=== PATIENT | female | born 1945 | race African-American/Black ===

== ENCOUNTER 2016-08-05 11:17 | Emergency (ER) | payer OTHER ==
[~2016-08-05 11:17] MED LIST: 1-ME1LIQ PO; ALLO100T PO; ASPI81TA82 PO; ATOR20TA PO; COUM2.5T PO; COUM5TAB PO; METO50TA PO; OMEP20TA39 PO
[2016-08-05 11:19] VITALS: BP 154/71; PULSE 88; RESP 17; TEMP 98.2; O2SAT 98
--- NOTE | 2016-08-05 11:29 | PD ---
Physical Exam Date Seen by Provider: Aug 05, 2016 Time Seen by Provider: 11:26 Narrative Pt presents c/o right knee pain. She states she heard it make a crunching noise this morning and since that time has been unable to bear weight. Pt reports previous bilateral knee replacements. Pt reports her pain as an 8/10 and described it as throbbing. Pt denies any injury or trauma recently. Data Data Last Documented VS Vital Signs Date Time Temp Pulse Resp B/P Pulse Ox O2 Delivery O2 Flow Rate FiO2 08/05/16 11:19 98.2 88 17 154/71 98 MDM Supervised Visit with TOBY: Simin Panda Aug 05, 2016 11:29
--- NOTE | 2016-08-05 11:33 | PD ---
HPI Chief Complaint: Injury Time Seen by Provider: 11:33 Travel History International Travel<30 days: No Contact w/Intl Traveler<30days: No Traveled to known affect area: No History of Present Illness HPI 71-year-old female with history of hypertension, borderline diabetes, and bilateral knee replacements, one in 1999, and one in 1996 however the patient is uncertain which one, presents to the emergency department for evaluation of right knee pain for the last 3 days. Patient denies any injury but states on Thursday she woke up and she had "crunching" in her right knee. It has been painful to bear weight on since then. Pain is an 8 out of 10 with ambulation. At rest a 4 out of 10. Her orthopedic surgeon is not local. She is not sure what else to do. She is concerned that something may be wrong with instrumentation. She has no other symptoms to report. PFSH Past Medical History Hx Anticoagulant Therapy: Yes (COUMADIN FOR CLOTS IN 1995, 1999, 2002) Arthritis: Yes Blood Disorders: No Heart Rhythm Problems: No Cancer: No Cardiac Catheterization: Yes Cardiovascular Problems: Yes (HTN, 2 X CO) High Cholesterol: Yes Chemotherapy: No Chest Pain: Yes Congestive Heart Failure: Yes Cerebrovascular Accident: No Diabetes: Yes (BORDERLINE) Diminished Hearing: No Deep Vein Thrombosis: Yes Endocrine: No Gastrointestinal Disorders: Yes GERD: Yes Genitourinary: No Hiatal Hernia: Yes Hypertension: Yes Immune Disorder: No Implanted Vascular Access Dvce: Yes Musculoskeletal: Yes (ARTHRITIS) Neurologic: No Psychiatric: No Reproductive: No Respiratory: No Immunizations Current: Yes Myocardial Infarction: Yes (11/2013) Thyroid Disease: No ?: Not Menopausal: Yes Past Surgical History Abdominal Surgery: Yes (GASTRIC BYPASS 1995) Appendectomy: Yes Body Medical Devices: ZACKARY KNEE REPLACEMENT Cholecystectomy: Yes Coronary Artery Bypass Graft: No Gynecologic Surgery: Yes (HYSTERECTOMY) Hysterectomy: No Joint Replacement: Yes (BILAT KNEE REPLACEMENT) Other Surgery: Yes (GASTRIC BYPASS, CATARACTS) Social History Alcohol Use: No Tobacco Use: No Substance Use: No Allergies-Medications (Allergen,Severity, Reaction): Coded Allergies: Lisinopril (Verified Allergy, Severe, angioedema, 01/29/16) Heparin (Verified Adverse Reaction, Severe, PLATELET PROBLEMS, 01/29/16) Reported Meds & Prescriptions Reported Meds & Active Scripts Active Wheelchair (Device) 1 Mis Mis 1 Ea .ROUTE DIRECTED Lortab (Hydrocodone-Acetaminophen) 5-325 Mg Tab 1 Tab PO Q6H PRN Walker/Adult/Folding (Device) 1 Mis Mis 1 Ea .ROUTE DIRECTED Medrol Dosepak (Methylprednisolone) 4 Mg Dspk 4 Mg PO DIRECTED Per Pharmacist direction 1-Methyl 2-Pyrrolidinone (1-Methyl 2-Pyrrolidone (Bulk)) 10 Mg Tab 1 Tab PO DAILY Reported Aspir-81 (Aspirin) 81 Mg Tab 81 Mg PO DIRECTED Coumadin 5 mg (Warfarin Sodium) Warfarin Sodium 5 mg Tab 5 Mg PO SUMOTUWETHSA TAKE 1 TABLET (5MG) ON THURSDAY,THURSDAY,THURSDAY,THURSDAY,THURSDAY AND THURSDAY Coumadin 2.5 mg (Warfarin Sodium) Warfarin Sodium 2.5 mg Tab 2.5 Mg PO WEEKLY TAKE 1 TABLET (2.5MG) WEEKLY ON FRIDAYS Allopurinol 100 Mg Tab 100 Mg PO DAILY Hm Omeprazole (Omeprazole) 20 Mg Tab 20 Mg PO DAILY Atorvastatin 20 mg tab (Atorvastatin Calcium) 20 Mg Tab 20 Mg PO DAILY 30 Days Metoprolol Tartrate 50 mg (Metoprolol Tartrate) 50 Mg Tab 50 Mg PO DAILY Review of Systems Except as stated in HPI: all other systems reviewed are Neg Physical Exam Narrative GENERAL: Well-nourished female patient, in no acute distress SKIN: Focused skin assessment warm/dry. HEAD: Atraumatic. Normocephalic. EYES: Pupils equal and round. No scleral icterus. No injection or drainage. ENT: No nasal bleeding or discharge. Mucous membranes pink and moist. NECK: Trachea midline. No JVD. CARDIOVASCULAR: Regular rate and rhythm. No murmur appreciated. RESPIRATORY: No accessory muscle use. Clear to auscultation. Breath sounds equal bilaterally. GASTROINTESTINAL: Abdomen soft, non-tender, nondistended. Hepatic and splenic margins not palpable. MUSCULOSKELETAL: No obvious deformities. No clubbing. No cyanosis. Large lower extremities. Tenderness elicited to palpation over the right anterior knee isolated to the patella. There is no crepitus. There is no erythema. Edema is difficult to assess due to leg girth. However lower extremities appear equal in size. The pulses are palpable. Cap refills within normal limits. NEUROLOGICAL: Awake and alert. No obvious cranial nerve deficits. Motor grossly within normal limits. Normal speech. PSYCHIATRIC: Appropriate mood and affect; insight and judgment normal. Data Data Last Documented VS Vital Signs Date Time Temp Pulse Resp B/P Pulse Ox O2 Delivery O2 Flow Rate FiO2 08/05/16 12:56 85 18 148/70 98 08/05/16 12:12 Room Air 08/05/16 11:19 98.2 Orders Knee, Complete (4vws) (08/05/16 ) Ketorolac Inj (Toradol Inj) (08/05/16 11:45) ^ David Bandage (08/05/16 12:29) MDM Medical Decision Making Medical Screen Exam Complete: Yes Emergency Medical Condition: Yes Medical Record Reviewed: Yes Differential Diagnosis Osteoarthritis versus bursitis versus instrumentation failure versus fracture versus sprain Narrative Course 71 year-old female presents to emergency department for evaluation of right knee pain, isolated to the anterior aspect of the right knee. Patient does have history DVT however assessment at this time does not support this possible diagnosis. Patient is reporting a crunching in her knee with anterior knee tenderness with palpation. X-ray imaging is negative trauma imaging. She is out as post arthroplasty. I have encouraged the patient to follow-up with an continuous improvement specialist. Further imaging outpatient may be warranted. David wrap is applied. Patient is requesting a prescription for wheelchair. I have advised for follow-up with her primary care provider and also advised that she not stay seated at all times as a full week in her muscles. She verbalizes understanding. She agrees to return immediately with any acute worsening of symptoms. Diagnosis Primary Impression: Right knee pain Qualified Code: M25.561 - Right knee pain, unspecified chronicity Referrals: Orthopaedic Surgeon Primary Care Physician Patient Instructions: General Instructions, Knee Pain (ED) Additional Instructions: Ice and/or warm moist heat may help to alleviate symptoms Follow-up the primary care provider Seek orthopedic evaluation if symptoms persist. Outpatient MRI may be warranted Return immediately with any acute worsening of symptoms Med/Other Pt SpecificInfo: Prescription(s) given Scripts Wheelchair 1 Mis Mis #1 EA .ROUTE DIRECTED Ref 0 Prov:Shilpa Delaney 08/05/16 Hydrocodone-Acetaminophen (Lortab)5-325 Mg Tab1 Tab PO Q6H PRN (PAIN GREATER THAN 5) #15 TAB Ref 0 Prov:Vaishali Canchola MD 08/05/16 Walker/Adult/Folding 1 Mis Mis #1 EA .ROUTE DIRECTED Ref 0 Prov:Shilpa Delaney 08/05/16 Methylprednisolone Dosepak (Medrol Dosepak)4 Mg Dspk4 Mg PO DIRECTED #1 DSPK Ref 0 Per Pharmacist direction Prov:Shilpa Delaney 08/05/16 Disposition: 01 DISCHARGE HOME Condition: Stable Shilpa Delaney Aug 05, 2016 11:33
[2016-08-05] MEDS ORDERED: KETOROLAC TROMETHAMINE 60 MG/2 ML (IM) VIAL IM ONE (11:45)
--- NOTE | 2016-08-05 12:21 | RADRPT ---
EXAM DATE/TIME: 08/05/2016 12:02 [facility] COMPARISON: No previous studies available for comparison. INDICATIONS : Right knee pain, fall. MEDICAL HISTORY : SURGICAL HISTORY : Total knee replacement, right. ENCOUNTER: Initial ACUITY: 2 weeks PAIN SCORE: 6/10 LOCATION: Right anterior knee FINDINGS: A standard 4 view examination of the knee was performed and demonstrates the patient is status post t otal knee arthroplasty. The femoral and tibial components are intact and in normal alignment. There i s no acute fracture or loosening. The soft tissues are unremarkable. CONCLUSION: Negative trauma study status post arthroplasty. Juan A Hernandez MD on August 05, 2016 at 12:18 Board Certified Radiologist. This report was verified electronically.
[2016-08-05] MEDS ORDERED: MEDR4PAK PO (12:31)
[2016-08-05] MEDS ORDERED: WALKER/ADULT/FO1 MIS (12:32)
[2016-08-05] MEDS ORDERED: HYDR-3533 PO (12:33)
[2016-08-05] MEDS ORDERED: WHEEMIS3 (12:36)
[2016-08-05 12:56] VITALS: BP 148/70
== END 2016-08-05 13:25 | disposition home or self-care (01) ==
LOC: NEPD 11:17
DX: M25.561 Pain in right knee (principal)
CPT/HCPCS: 73564; 96372; 99283; J1885

== ENCOUNTER 2016-10-05 00:26 | Emergency (ER) | payer OTHER ==
[~2016-10-05] VITALS: Ht 160 cm; Wt 120.0 kg
[~2016-10-05 00:26] MED LIST changes: +HYDR-3533 PO; +MEDR4PAK PO; +WALKER/ADULT/FO1 MIS; +WHEEMIS3
[2016-10-05 00:28] VITALS: BP 151/72; PULSE 70; RESP 16; TEMP 98.4; O2SAT 100
[2016-10-05 00:40] VITALS: BP 165/70; PULSE 67; RESP 16; O2SAT 100
[2016-10-05] MEDS ORDERED: AMLO10TA2 PO (00:45)
[2016-10-05] MEDS ORDERED: AMLO5TAB2 PO (00:45)
[2016-10-05] MEDS ORDERED: WARF-18 PO (00:45)
[2016-10-05] MEDS ORDERED: COUM5TAB PO (00:45)
[2016-10-05] MEDS ORDERED: LIPI20TA PO (00:45)
--- NOTE | 2016-10-05 00:55 | PD ---
HPI Chief Complaint: Chest Pain Time Seen by Provider: 00:42 Travel History International Travel<30 days: No Contact w/Intl Traveler<30days: No Traveled to known affect area: No History of Present Illness HPI The patient is a 71-year-old [place] female who presents emergency department for chest pain. The patient states she developed chest pain approximately 2 hours prior to arrival while she was driving her 18-year-old granddaughter to the emergency department. The chest pain is substernal, radiates left aspect the chest, described as pressure, mild shortness of breath and nausea without any vomiting. She has been sweating throughout the day. The patient does note a history of CAD, however, denies previous stent placement. She also has a history of hypertension, hyperlipidemia, borderline diabetes, but denies any tobacco use. The patient is followed by her primary physician, Dr. Pizano and her learning officer, Dr. Alfaro. The patient had a stress test in 2014 which was abnormal, states she may have undergone cardiac catheterization at [facility] in either April or June of this year, but cannot recall the exact date. Symptoms are moderate, there are no current alleviating or exacerbating factors. The patient does have a history of DVT and has been on Coumadin since 1995. She denies any history of pulmonary embolism. PFSH Past Medical History Hx Anticoagulant Therapy: Yes (COUMADIN FOR CLOTS IN 1995, 1999, 2002) Arthritis: Yes Blood Disorders: No Heart Rhythm Problems: No Cancer: No Cardiac Catheterization: Yes Cardiovascular Problems: Yes (HTN, 2 X MS) High Cholesterol: Yes Chemotherapy: No Chest Pain: Yes Congestive Heart Failure: Yes Cerebrovascular Accident: No Diabetes: Yes (BORDERLINE) Diminished Hearing: No Deep Vein Thrombosis: Yes Endocrine: No Gastrointestinal Disorders: Yes GERD: Yes Genitourinary: No Hiatal Hernia: Yes Hypertension: Yes Immune Disorder: No Implanted Vascular Access Dvce: Yes Musculoskeletal: Yes (ARTHRITIS) Neurologic: No Psychiatric: No Reproductive: No Respiratory: No Immunizations Current: Yes Myocardial Infarction: Yes (11/2013) Thyroid Disease: No Menopausal: Yes Past Surgical History Abdominal Surgery: Yes (GASTRIC BYPASS 1995) Appendectomy: Yes Body Medical Devices: ZACKARY KNEE REPLACEMENT Cholecystectomy: Yes Coronary Artery Bypass Graft: No Gynecologic Surgery: Yes (HYSTERECTOMY) Hysterectomy: No Joint Replacement: Yes (BILAT KNEE REPLACEMENT) Other Surgery: Yes (GASTRIC BYPASS, CATARACTS) Social History Alcohol Use: No Tobacco Use: No Substance Use: No Allergies-Medications (Allergen,Severity, Reaction): Coded Allergies: Lisinopril (Verified Allergy, Severe, angioedema, 10/05/16) Heparin (Verified Adverse Reaction, Severe, PLATELET PROBLEMS, 10/05/16) Reported Meds & Prescriptions Reported Meds & Active Scripts Active Wheelchair (Device) 1 Mis Mis 1 Ea .ROUTE DIRECTED Walker/Adult/Folding (Device) 1 Mis Mis 1 Ea .ROUTE DIRECTED Reported Amlodipine (Amlodipine Besylate) 10 Mg Tab 10 Mg PO DAILY Lipitor (Atorvastatin Calcium) 20 Mg Tab 20 Mg PO HS Warfarin 2.5 Mg Tab 2.5 Mg PO FRIMO Coumadin (Warfarin) 5 Mg Tab 5 Mg PO WETHSASU Review of Systems Except as stated in HPI: all other systems reviewed are Neg General / Constitutional: No: Fever HENT: No: Lightheadedness Cardiovascular: Positive: Chest Pain or Discomfort, Diaphoresis, No: Dyspnea on exertion Respiratory: Positive: Shortness of Breath Gastrointestinal: Positive: Nausea, No: Vomiting Neurologic: No: Dizziness Physical Exam Narrative GENERAL: Awake, alert, nontoxic-appearing 71-year-old female who appears her stated age is in no acute respiratory distress. SKIN: Focused skin assessment warm/dry. HEAD: Atraumatic. Normocephalic. EYES: Pupils equal and round. No injection or drainage. ENT: No nasal bleeding or discharge. Mucous membranes pink and moist. NECK: Trachea midline. No JVD. CARDIOVASCULAR: Regular rate and rhythm. No murmur appreciated. RESPIRATORY: No accessory muscle use. Clear to auscultation. Breath sounds equal bilaterally. GASTROINTESTINAL: Abdomen soft, non-tender, nondistended. No rebound tenderness. MUSCULOSKELETAL: No obvious deformities. No clubbing. No cyanosis. Well- healed scars of the lower and strength is bilaterally. NEUROLOGICAL: Awake and alert. No obvious cranial nerve deficits. Motor grossly within normal limits. Normal speech. PSYCHIATRIC: Appropriate mood and affect; insight and judgment normal. Data Data Last Documented VS Vital Signs Date Time Temp Pulse Resp B/P Pulse Ox O2 Delivery O2 Flow Rate FiO2 10/05/16 01:48 77 18 153/69 98 Room Air 10/05/16 00:28 98.4 Orders Electrocardiogram (10/05/16 00:51) Ckmb (Isoenzyme) Profile (10/05/16 00:51) Complete Blood Count With Diff (10/05/16 00:51) Comprehensive Metabolic Panel (10/05/16 00:51) Magnesium (Mg) (10/05/16 00:51) Prothrombin Time / Inr (Pt) (10/05/16 00:51) Act Partial Throm Time (Ptt) (10/05/16 00:51) Troponin I (10/05/16 00:51) Lipase (10/05/16 00:51) Chest, Single Ap (10/05/16 00:51) Ecg Monitoring (10/05/16 00:51) Bilateral Bp Monitoring (10/05/16 00:51) Iv Access Insert/Monitor (10/05/16 00:51) Oximetry (10/05/16 00:51) Oxygen Administration (10/05/16 00:51) Aspirin Chew (Aspirin Chew) (10/05/16 01:00) Sodium Chloride 0.9% Flush (Ns Flush) (10/05/16 01:00) Nitroglycerin Sl (Nitrostat Sl) (10/05/16 01:00) Sodium Chlorid 0.9% 500 Ml Inj (Ns 500 M (10/05/16 01:00) Troponin I (10/05/16 05:00) Labs Laboratory Tests Test 10/05/16 10/05/16 10/05/16 01:20 02:14 05:27 White Blood Count 10.1 TH/MM3 Red Blood Count 5.09 MIL/MM3 Hemoglobin 13.3 GM/DL Hematocrit 40.6 % Mean Corpuscular Volume 79.7 FL Mean Corpuscular Hemoglobin 26.1 PG Mean Corpuscular Hemoglobin 32.7 % Concent Red Cell Distribution Width 16.4 % Platelet Count 259 TH/MM3 Mean Platelet Volume 9.2 FL Neutrophils (%) (Auto) 54.8 % Lymphocytes (%) (Auto) 30.9 % Monocytes (%) (Auto) 8.5 % Eosinophils (%) (Auto) 4.8 % Basophils (%) (Auto) 1.0 % Neutrophils # (Auto) 5.5 TH/MM3 Lymphocytes # (Auto) 3.1 TH/MM3 Monocytes # (Auto) 0.9 TH/MM3 Eosinophils # (Auto) 0.5 TH/MM3 Basophils # (Auto) 0.1 TH/MM3 CBC Comment DIFF FINAL Differential Comment Prothrombin Time 21.6 SEC Prothromb Time International 1.9 RATIO Ratio Activated Partial 34.5 SEC Thromboplast Time Sodium Level 141 MEQ/L Potassium Level 3.7 MEQ/L Chloride Level 108 MEQ/L Carbon Dioxide Level 23.7 MEQ/L Anion Gap 9 MEQ/L Blood Urea Nitrogen 13 MG/DL Creatinine 0.80 MG/DL Estimat Glomerular Filtration 86 ML/MIN Rate Random Glucose 103 MG/DL Calcium Level 8.6 MG/DL Magnesium Level 1.9 MG/DL Total Bilirubin 0.2 MG/DL Aspartate Amino Transf 14 U/L (AST/SGOT) Alanine Aminotransferase 13 U/L (ALT/SGPT) Alkaline Phosphatase 96 U/L Total Creatine Kinase 65 U/L Troponin I LESS THAN 0.02 LESS THAN 0.02 NG/ML NG/ML Total Protein 7.3 GM/DL Albumin 3.0 GM/DL Lipase 63 U/L MDM Medical Decision Making Medical Screen Exam Complete: Yes Emergency Medical Condition: Yes Medical Record Reviewed: Yes Interpretation(s) EKG reveals normal sinus rhythm with a rate of 66. Minimal voltage criteria for LVH. Last Impressions Chest X-Ray 10/05/16 0051 Signed Impressions: Service Date/Time: Wednesday, October 05, 2016 01:03 - CONCLUSION: No acute disease. Jose Vang MD Laboratory Tests Test 10/05/16 10/05/16 10/05/16 01:20 02:14 05:27 White Blood Count 10.1 TH/MM3 Red Blood Count 5.09 MIL/MM3 Hemoglobin 13.3 GM/DL Hematocrit 40.6 % Mean Corpuscular Volume 79.7 FL Mean Corpuscular Hemoglobin 26.1 PG Mean Corpuscular Hemoglobin 32.7 % Concent Red Cell Distribution Width 16.4 % Platelet Count 259 TH/MM3 Mean Platelet Volume 9.2 FL Neutrophils (%) (Auto) 54.8 % Lymphocytes (%) (Auto) 30.9 % Monocytes (%) (Auto) 8.5 % Eosinophils (%) (Auto) 4.8 % Basophils (%) (Auto) 1.0 % Neutrophils # (Auto) 5.5 TH/MM3 Lymphocytes # (Auto) 3.1 TH/MM3 Monocytes # (Auto) 0.9 TH/MM3 Eosinophils # (Auto) 0.5 TH/MM3 Basophils # (Auto) 0.1 TH/MM3 CBC Comment DIFF FINAL Differential Comment Prothrombin Time 21.6 SEC Prothromb Time International 1.9 RATIO Ratio Activated Partial 34.5 SEC Thromboplast Time Sodium Level 141 MEQ/L Potassium Level 3.7 MEQ/L Chloride Level 108 MEQ/L Carbon Dioxide Level 23.7 MEQ/L Anion Gap 9 MEQ/L Blood Urea Nitrogen 13 MG/DL Creatinine 0.80 MG/DL Estimat Glomerular Filtration 86 ML/MIN Rate Random Glucose 103 MG/DL Calcium Level 8.6 MG/DL Magnesium Level 1.9 MG/DL Total Bilirubin 0.2 MG/DL Aspartate Amino Transf 14 U/L (AST/SGOT) Alanine Aminotransferase 13 U/L (ALT/SGPT) Alkaline Phosphatase 96 U/L Total Creatine Kinase 65 U/L Troponin I LESS THAN 0.02 LESS THAN 0.02 NG/ML NG/ML Total Protein 7.3 GM/DL Albumin 3.0 GM/DL Lipase 63 U/L Differential Diagnosis Differential diagnosis includes acute coronary syndrome, pulmonary embolism, GERD, esophageal spasm, pancreatitis, costochondritis, anxiety. Narrative Course IV was established, labs are drawn and sent, and the patient was placed on cardiac telemetry monitoring and continuous pulse oximetry monitoring. EKG was ordered and interpreted. Chest x-rays obtained. PTT/INR were sent to lab. The patient was administered aspirin 162 mg orally and nitroglycerin sublingual times one. I reviewed the patient's EMR, she had an abnormal stress test in 2014, I cannot see a cardiac catheterization performed at that time. We will try to obtain records of her cardiac catheterization was performed at [facility] in [place], [place]. We obtained the patient's cardiac catheterization report from [facility], the catheter was performed May 04, 2015, findings were the left main had no evidence of disease, LAD had no evidence of disease, circumflex had no evidence of disease, RCA had no evidence of disease, cardiac catheterization was unremarkable, normal, no stent needed. Therefore, patient's pain may be of another source, I had a discussion with the patient was agreed we rechecked 2 sets cardiac enzymes and if negative the patient will be discharged home. The patient's second troponin is negative , she is now chest pain-free, she is stable for outpatient follow-up. Diagnosis Primary Impression: Chest pain Qualified Code: R07.9 - Chest pain, unspecified type Patient Instructions: General Instructions Additional Instructions: Continue your home medications as previously directed. Follow-up with her primary physician. Please provide the patient a copy of her x-ray results and lab results at discharge. Return if symptoms worsen or progress. Med/Other Pt SpecificInfo: No Change to Meds Disposition: 01 DISCHARGE HOME Condition: Stable Hill Mccallum MD Oct 05, 2016 00:55
[2016-10-05] MEDS ORDERED: SODIUM CHLORID 0.9% 500 ML INJ 500 ML IV ONE (01:00)
[2016-10-05] MEDS ORDERED: ASPIRIN 81 MG CHEW TAB PO ONE (01:00)
[2016-10-05] MEDS ORDERED: SODIUM CHLORIDE 0.9% FLUSH 10 ML FLUSH IVF PRN (01:00)
[2016-10-05] MEDS ORDERED: NITROGLYCERIN 0.4 MG SL 25 TABS/BTL SL ONE (01:00)
[2016-10-05 01:26] VITALS: RESP 22; O2SAT 100
[2016-10-05 01:32] LABS: AUTOMATED NEUTROPHIL # 5.5 TH/MM3 (1.8-7.7); BASOPHIL # 0.1 TH/MM3 (0-0.2); EOSINOPHIL # 0.5 TH/MM3 (0-0.4); EOSINOPHIL % 4.8 % (0.0-4.0); HEMATOCRIT 40.6 % (35.0-46.0); HEMO FLAGS DIFF FINAL; LYMPH % 30.9 % (9.0-44.0); LYMPHOCYTE # 3.1 TH/MM3 (1.0-4.8); MEAN CELL VOLUME 79.7 FL (80.0-100.0); MEAN CORPUSCULAR HEMOGLOBIN 26.1 PG (27.0-34.0); MEAN CORPUSCULAR HGB CONC 32.7 % (32.0-36.0); MONO % 8.5 % (0.0-8.0); NEUT % 54.8 % (16.0-70.0); PLATELET COUNT 259 TH/MM3 (150-450); RED BLOOD COUNT 5.09 MIL/MM3 (4.00-5.30); RED CELL DISTRIBUTION WIDTH 16.4 % (11.6-17.2); WHITE BLOOD COUNT 10.1 TH/MM3 (4.0-11.0)
[2016-10-05 01:47] LABS: INTERNATIONAL NORMALIZED RATIO 1.9 RATIO; PROTHROMBIN TIME - PATIENT 21.6 SEC (9.8-11.6)
[2016-10-05 01:48] VITALS: BP 153/69; PULSE 77; RESP 18; O2SAT 98
[2016-10-05 01:57] LABS: APTT (PATIENT) 34.5 SEC (24.3-30.1)
--- NOTE | 2016-10-05 02:00 | RADRPT ---
EXAM DATE/TIME: 10/05/2016 01:03 [facility] COMPARISON: CHEST SINGLE AP, January 29, 2016, 18:58. INDICATIONS : Chest pain. MEDICAL HISTORY : Hypertension. Myocardial infarction. Hypercholesterolemia. Diabetes, Hiatal hernia. GERD. Arthrit is, DVT SURGICAL HISTORY : Appendectomy. Cholecystectomy. Hysterectomy. Cardiac catheterization. Gastric bypass. Bilateral knee surgery ENCOUNTER: Initial ACUITY: 1 day PAIN SCORE: 8/10 LOCATION: Bilateral chest FINDINGS: A single view of the chest demonstrates the lungs to be symmetrically aerated without evidence of mas s, infiltrate or effusion. The cardiomediastinal contours are unremarkable. Osseous structures are intact. CONCLUSION: No acute disease. Jose Vang MD on October 05, 2016 at 1:58 Board Certified Radiologist. This report was verified electronically.
[2016-10-05 02:47] LABS: ALT (GPT) 13 U/L (10-53); ANION GAP 9 MEQ/L (5-15); AST (GOT) 14 U/L (15-37); BICARBONATE 23.7 MEQ/L (21.0-32.0); BLOOD UREA NITROGEN 13 MG/DL (7-18); CHLORIDE 108 MEQ/L (98-107); GLOMERULAR FILTRATION RATE 86 ML/MIN (>89); MAGNESIUM 1.9 MG/DL (1.5-2.5); POTASSIUM 3.7 MEQ/L (3.5-5.1); SODIUM (NA) 141 MEQ/L (136-145)
[2016-10-05 02:51] LABS: ALKALINE PHOSPHATASE 96 U/L (45-117); TOTAL BILIRUBIN ADULT 0.2 MG/DL (0.2-1.0)
[2016-10-05 03:02] LABS: CREATINE KINASE 65 U/L (26-192)
[2016-10-05 06:37] VITALS: BP 179/74; PULSE 69; RESP 20; O2SAT 96
--- NOTE | 2016-10-05 12:09 | EKG ---
Date Performed: 10/05/2016 Time Performed: 00:37:20 PTAGE: 71 years EKG: Sinus rhythm MINIMAL VOLTAGE CRITERIA FOR LVH, CONSIDER NORMAL VARIANT Since previous tracing, no significant edilma nge noted BORDERLINE ECG PREVIOUS TRACING : 01/30/2016 01.07 DOCTOR: Johnie Moy Interpretating Date/Time 10/05/2016 12:09:25
== END 2016-10-05 06:50 | disposition home or self-care (01) ==
LOC: NEPC 00:26
DX: R07.9 Chest pain, unspecified (principal); R06.02 Shortness of breath; R11.0 Nausea; R61 Generalized hyperhidrosis; R94.31 Abnormal electrocardiogram [ECG] [EKG]; I10 Essential (primary) hypertension; E78.5 Hyperlipidemia, unspecified; R73.03 Prediabetes; I25.2 Old myocardial infarction; Z79.01 Long term (current) use of anticoagulants; Z86.79 Personal history of other diseases of the circulatory system; Z86.718 Personal history of other venous thrombosis and embolism; Z87.39 Personal history of other diseases of the musculoskeletal system and connective tissue; Z87.19 Personal history of other diseases of the digestive system
CPT/HCPCS: 71010; 80053; 82550; 83690; 83735; 84484; 85025; 85610; 85730; 93005; 96360; 96361; 99285; J7040

== ENCOUNTER 2017-02-24 16:25 | Emergency (ER) | payer OTHER ==
[~2017-02-24 16:25] MED LIST changes: -1-ME1LIQ PO; -ALLO100T PO; +AMLO10TA2 PO; -ASPI81TA82 PO; -ATOR20TA PO; -COUM2.5T PO; -HYDR-3533 PO; +LIPI20TA PO; -MEDR4PAK PO; -METO50TA PO; -OMEP20TA39 PO; +WARF-18 PO
[2017-02-24 16:28] VITALS: BP 139/68; PULSE 65; RESP 16; TEMP 98.4; O2SAT 100
--- NOTE | 2017-02-24 18:21 | RADRPT ---
EXAM DATE/TIME: 02/24/2017 17:42 [facility] COMPARISON: CHEST PA & LAT, January 16, 2015, 13:24. INDICATIONS : Chest pain and short of breath. MEDICAL HISTORY : Hypertension. Myocardial infarction. Hypercholesterolemia. Diabetes. Hiatal hernia. GERD. Arthritis. DVT. SURGICAL HISTORY : Appendectomy. Cholecystectomy. Hysterectomy. Cardiac catheterization. Gastric bypass. Bilateral knee surgery. ENCOUNTER: Initial ACUITY: 2 days PAIN SCORE: 3/10 LOCATION: Bilateral chest FINDINGS: PA and lateral views of the chest demonstrate the lungs to be symmetrically aerated without evidence of mass, infiltrate or effusion. The cardiomediastinal contours are unremarkable. Spurs are seen in the thoracic spine.. CONCLUSION: Normal examination. Abiel Agarwal MD on February 24, 2017 at 18:19 Board Certified Radiologist. This report was verified electronically.
[2017-02-24] MEDS ORDERED: SPIR25TA PO (20:29)
[2017-02-24] MEDS ORDERED: ALLO100T PO (20:29)
[2017-02-24] MEDS ORDERED: OMEP10CA PO (20:29)
[2017-02-24 20:30] VITALS: BP 183/87; PULSE 62; RESP 18; O2SAT 100
[2017-02-24] MEDS ORDERED: SODIUM CHLORIDE 0.9% FLUSH 10 ML FLUSH IVF PRN (21:00)
[2017-02-24 21:11] LABS: ANION GAP 9 MEQ/L (5-15); BLOOD UREA NITROGEN 13 MG/DL (7-18); CHLORIDE 104 MEQ/L (98-107); GLOMERULAR FILTRATION RATE 53 ML/MIN (>89); SODIUM (NA) 136 MEQ/L (136-145)
[2017-02-24 21:14] LABS: CREATINE KINASE 137 U/L (26-192)
[2017-02-24 21:16] LABS: BASOPHIL # 0.1 TH/MM3 (0-0.2); BASOPHIL % 0.7 % (0.0-2.0); EOSINOPHIL # 0.4 TH/MM3 (0-0.4); EOSINOPHIL % 4.6 % (0.0-4.0); HEMATOCRIT 43.1 % (35.0-46.0); HEMO FLAGS DIFF FINAL; LYMPH % 31.6 % (9.0-44.0); LYMPHOCYTE # 2.9 TH/MM3 (1.0-4.8); MEAN CELL VOLUME 81.9 FL (80.0-100.0); MEAN CORPUSCULAR HEMOGLOBIN 26.2 PG (27.0-34.0); NEUT % 55.1 % (16.0-70.0); PLATELET COUNT 236 TH/MM3 (150-450); RED BLOOD COUNT 5.26 MIL/MM3 (4.00-5.30); RED CELL DISTRIBUTION WIDTH 16.2 % (11.6-17.2); WHITE BLOOD COUNT 9.1 TH/MM3 (4.0-11.0)
[2017-02-24 21:21] LABS: POTASSIUM 4.8 MEQ/L (3.5-5.1)
--- NOTE | 2017-02-24 21:21 | PD ---
HPI Chief Complaint: Respiratory Symptoms Time Seen by Provider: 20:55 Travel History International Travel<30 days: No Contact w/Intl Traveler<30days: No Traveled to known affect area: No History of Present Illness HPI Patient is a 72-year-old female presenting to the emergency department for evaluation of painful respirations. Patient states that it hurts to take a deep breath. She states this started on and she went to her primary doctor today who sent her to emergency department for chest x-ray. Patient denies any cough, fever, chills, nausea, vomiting. She states she does not feel short of breath but just that it hurts to take a deep breath. She denies any history of COPD or asthma. She is currently on Coumadin for DVT in her leg. She also reports a history of type 2 diabetes, hypertension, hyperlipidemia. PFSH Past Medical History Hx Anticoagulant Therapy: Yes (COUMADIN) Arthritis: Yes Blood Disorders: No Heart Rhythm Problems: No Cancer: No Cardiac Catheterization: Yes Cardiovascular Problems: Yes (HTN; [place] ) High Cholesterol: Yes Chemotherapy: No Chest Pain: Yes Congestive Heart Failure: Yes Cerebrovascular Accident: No Diabetes: Yes Patient Takes Glucophage: No Diminished Hearing: No Deep Vein Thrombosis: Yes Endocrine: No GERD: Yes Genitourinary: No Hiatal Hernia: Yes Hypertension: Yes Immune Disorder: No Neurologic: No Psychiatric: No Reproductive: No Respiratory: No Immunizations Current: Yes Myocardial Infarction: Yes (11/2013) Thyroid Disease: No Tetanus Vaccination: Unknown Influenza Vaccination: Yes Menopausal: Yes Past Surgical History Abdominal Surgery: Yes (GASTRIC BYPASS 1995) Appendectomy: Yes Body Medical Devices: ZACKARY KNEE REPLACEMENT Cholecystectomy: Yes Coronary Artery Bypass Graft: No Hysterectomy: Yes (TOTAL) Joint Replacement: Yes (BILAT KNEE REPLACEMENT) Other Surgery: Yes (GASTRIC BYPASS, CATARACTS) Family History Family Myocardial Infarction: Yes Social History Alcohol Use: No Tobacco Use: No Substance Use: No Allergies-Medications (Allergen,Severity, Reaction): Coded Allergies: lisinopril (Unverified Allergy, Severe, angioedema, 02/24/17) enoxaparin (Unverified Adverse Reaction, Severe, PLATELET PROBLEMS, ) heparin (porcine) (Unverified Adverse Reaction, Severe, PLATELET PROBLEMS , 02/24/17) Reported Meds & Prescriptions Reported Meds & Active Scripts Active Reported Omeprazole 10 Mg Cap 10 Mg PO DAILY Allopurinol 100 Mg Tab 100 Mg PO DAILY Spironolactone 25 Mg Tab 25 Mg PO BIDPC Amlodipine (Amlodipine Besylate) 10 Mg Tab 10 Mg PO DAILY Lipitor (Atorvastatin Calcium) 20 Mg Tab 20 Mg PO HS Warfarin 2.5 Mg Tab 2.5 Mg PO FRIMO Coumadin (Warfarin) 5 Mg Tab 5 Mg PO TUWETHSASU Review of Systems Except as stated in HPI: all other systems reviewed are Neg HENT: No: Headaches Cardiovascular: No: Chest Pain or Discomfort Respiratory: Positive: Pleuritic Pain, No: Shortness of Breath Gastrointestinal: No: Nausea, Abdominal Pain Musculoskeletal: No: Myalgias Physical Exam Narrative GENERAL: Overweight, well-developed, alert female. Resting comfortably in no acute distress. SKIN: Warm and dry. HEAD: Atraumatic. Normocephalic. EYES: Pupils equal and round. No scleral icterus. No injection or drainage. ENT: No nasal bleeding or discharge. Mucous membranes pink and moist. NECK: Trachea midline. No JVD. CARDIOVASCULAR: Regular rate and rhythm. RESPIRATORY: No accessory muscle use. Clear to auscultation. Breath sounds equal bilaterally. GASTROINTESTINAL: Abdomen soft, non-tender, nondistended. Hepatic and splenic margins not palpable. Positive bowel sounds, no rebound, no guarding MUSCULOSKELETAL: Extremities without clubbing, cyanosis, or edema. No obvious deformities. NEUROLOGICAL: Awake and alert. No obvious cranial nerve deficits. Motor grossly within normal limits. Five out of 5 muscle strength in the arms and legs. Normal speech. PSYCHIATRIC: Appropriate mood and affect; insight and judgment normal. Data Data Last Documented VS Vital Signs Date Time Temp Pulse Resp B/P (MAP) Pulse Ox O2 Delivery O2 Flow Rate FiO2 02/24/17 20:50 97 Nasal Cannula 2.00 02/24/17 20:30 62 18 183/87 (119) 02/24/17 16:28 98.4 Orders Orders Electrocardiogram (02/24/17 16:45) Basic Metabolic Panel (Bmp) (02/24/17 16:45) B-Type Natriuretic Peptide (02/24/17 16:45) Ckmb (Isoenzyme) Profile (02/24/17 16:45) Complete Blood Count With Diff (02/24/17 16:45) Magnesium (Mg) (02/24/17 16:45) Prothrombin Time / Inr (Pt) (02/24/17 16:45) Act Partial Throm Time (Ptt) (02/24/17 16:45) Troponin I (02/24/17 16:45) Chest, Pa & Lat (02/24/17 16:45) Iv Access Insert/Monitor (02/24/17 20:56) Ecg Monitoring (02/24/17 20:56) Oximetry (02/24/17 20:56) Oxygen Administration (02/24/17 20:56) Sodium Chloride 0.9% Flush (Ns Flush) (02/24/17 21:00) CKMB (02/24/17 20:30) CKMB% (02/24/17 20:30) Ketorolac Inj (Toradol Inj) (02/24/17 22:45) Labs Laboratory Tests Test 02/24/17 20:30 02/24/17 21:36 White Blood Count 9.1 TH/MM3 Red Blood Count 5.26 MIL/MM3 Hemoglobin 13.8 GM/DL Hematocrit 43.1 % Mean Corpuscular Volume 81.9 FL Mean Corpuscular Hemoglobin 26.2 PG Mean Corpuscular Hemoglobin Concent 32.0 % Red Cell Distribution Width 16.2 % Platelet Count 236 TH/MM3 Mean Platelet Volume 9.2 FL Neutrophils (%) (Auto) 55.1 % Lymphocytes (%) (Auto) 31.6 % Monocytes (%) (Auto) 8.0 % Eosinophils (%) (Auto) 4.6 % Basophils (%) (Auto) 0.7 % Neutrophils # (Auto) 5.0 TH/MM3 Lymphocytes # (Auto) 2.9 TH/MM3 Monocytes # (Auto) 0.7 TH/MM3 Eosinophils # (Auto) 0.4 TH/MM3 Basophils # (Auto) 0.1 TH/MM3 CBC Comment DIFF FINAL Differential Comment Blood Urea Nitrogen 13 MG/DL Creatinine 1.21 MG/DL Random Glucose 157 MG/DL Calcium Level 8.9 MG/DL Magnesium Level 2.0 MG/DL Sodium Level 136 MEQ/L Potassium Level 4.8 MEQ/L Chloride Level 104 MEQ/L Carbon Dioxide Level 23.0 MEQ/L Anion Gap 9 MEQ/L Estimat Glomerular Filtration Rate 53 ML/MIN Total Creatine Kinase 137 U/L Creatine Kinase MB LESS THAN 0.5 NG/ML Troponin I LESS THAN 0.02 NG/ML B-Type Natriuretic Peptide 23 PG/ML Prothrombin Time 20.1 SEC Prothromb Time International Ratio 1.8 RATIO Activated Partial Thromboplast Time 33.6 SEC MDM Medical Decision Making Medical Screen Exam Complete: Yes Emergency Medical Condition: Yes Interpretation(s) Last Impressions Chest X-Ray 02/24/17 1645 Signed Impressions: Service Date/Time: Friday, February 24, 2017 17:42 - CONCLUSION: Normal examination. Abiel Agarwal MD Vital Signs Date Time Temp Pulse Resp B/P (MAP) Pulse Ox O2 Delivery O2 Flow Rate FiO2 02/24/17 20:50 97 Nasal Cannula 2.00 02/24/17 20:30 62 18 183/87 (119) 100 Nasal Cannula 2.00 02/24/17 20:22 60 16 100 Nasal Cannula 2.00 02/24/17 16:28 98.4 65 16 139/68 (91) 100 Differential Diagnosis ACS versus pneumonia versus bronchitis versus pleuritic pain versus other Narrative Course Patient is a 72-year-old female that presented to the emergency for evaluation of pleuritic chest pain. Symptoms started on , she saw her primary today who sent her to emergency department for evaluation. Vital signs are stable, on arrival her pulse ox was 97% on room air. Patient's workup was initiated in triage. Patient is on Coumadin for previous DVT. CBC with no acute abnormalities Cardiac enzymes are negative 1 set BNP is 23 Chest x-ray which was read by the radiologist shows no acute disease. Coags are pending. INR is within therapeutic range. Patient will be discharged home as the likelihood of a pulmonary embolism would be significantly decreased. Patient does report compliance with medication administration. Patient will be administered a dose of Toradol now for pain. Patient reported that her INR was 1.2 on Thursday. INR today is 1.8. CT pulmonary angiogram has been ordered to rule out pulmonary embolism due to subtherapeutic INR. Care of patient transferred to Dr. Boone who will determine patients disposition. Simin Hsieh Feb 24, 2017 21:21
--- NOTE | 2017-02-24 21:28 | EKG ---
Date Performed: 02/24/2017 Time Performed: 18:07:11 PTAGE: 72 years EKG: SINUS BRADYCARDIA BORDERLINE ECG PREVIOUS TRACING : 10/05/2016 00.37 Compared to the previous tracing rate slower DOCTOR: Navya Donald Interpretating Date/Time 02/24/2017 21:27:20
[2017-02-24 21:36] LABS: CKMB LESS THAN 0.5 NG/ML (0.5-3.6)
[2017-02-24] MEDS ORDERED: KETOROLAC TROMETHAMINE 30 MG/ML (IVP) VIAL IV PUSH ONE (22:45)
[2017-02-24 22:48] LABS: APTT (PATIENT) 33.6 SEC (24.3-30.1); INTERNATIONAL NORMALIZED RATIO 1.8 RATIO; PROTHROMBIN TIME - PATIENT 20.1 SEC (9.8-11.6)
--- NOTE | 2017-02-24 23:01 | PD ---
Data Data Last Documented VS Vital Signs Date Time Temp Pulse Resp B/P (MAP) Pulse Ox O2 Delivery O2 Flow Rate FiO2 02/24/17 20:50 97 Nasal Cannula 2.00 02/24/17 20:30 62 18 183/87 (119) 02/24/17 16:28 98.4 Orders Orders Electrocardiogram (02/24/17 16:45) Basic Metabolic Panel (Bmp) (02/24/17 16:45) B-Type Natriuretic Peptide (02/24/17 16:45) Ckmb (Isoenzyme) Profile (02/24/17 16:45) Complete Blood Count With Diff (02/24/17 16:45) Magnesium (Mg) (02/24/17 16:45) Prothrombin Time / Inr (Pt) (02/24/17 16:45) Act Partial Throm Time (Ptt) (02/24/17 16:45) Troponin I (02/24/17 16:45) Chest, Pa & Lat (02/24/17 16:45) Iv Access Insert/Monitor (02/24/17 20:56) Ecg Monitoring (02/24/17 20:56) Oximetry (02/24/17 20:56) Oxygen Administration (02/24/17 20:56) Sodium Chloride 0.9% Flush (Ns Flush) (02/24/17 21:00) CKMB (02/24/17 20:30) CKMB% (02/24/17 20:30) Ketorolac Inj (Toradol Inj) (02/24/17 22:45) Ct Pulmonary Angiogram (02/24/17 ) Iohexol 350 Inj (Omnipaque 350 Inj) (02/24/17 23:24) Ed Discharge Order (02/25/17 00:12) Labs Laboratory Tests Test 02/24/17 20:30 02/24/17 21:36 White Blood Count 9.1 TH/MM3 Red Blood Count 5.26 MIL/MM3 Hemoglobin 13.8 GM/DL Hematocrit 43.1 % Mean Corpuscular Volume 81.9 FL Mean Corpuscular Hemoglobin 26.2 PG Mean Corpuscular Hemoglobin Concent 32.0 % Red Cell Distribution Width 16.2 % Platelet Count 236 TH/MM3 Mean Platelet Volume 9.2 FL Neutrophils (%) (Auto) 55.1 % Lymphocytes (%) (Auto) 31.6 % Monocytes (%) (Auto) 8.0 % Eosinophils (%) (Auto) 4.6 % Basophils (%) (Auto) 0.7 % Neutrophils # (Auto) 5.0 TH/MM3 Lymphocytes # (Auto) 2.9 TH/MM3 Monocytes # (Auto) 0.7 TH/MM3 Eosinophils # (Auto) 0.4 TH/MM3 Basophils # (Auto) 0.1 TH/MM3 CBC Comment DIFF FINAL Differential Comment Blood Urea Nitrogen 13 MG/DL Creatinine 1.21 MG/DL Random Glucose 157 MG/DL Calcium Level 8.9 MG/DL Magnesium Level 2.0 MG/DL Sodium Level 136 MEQ/L Potassium Level 4.8 MEQ/L Chloride Level 104 MEQ/L Carbon Dioxide Level 23.0 MEQ/L Anion Gap 9 MEQ/L Estimat Glomerular Filtration Rate 53 ML/MIN Total Creatine Kinase 137 U/L Creatine Kinase MB LESS THAN 0.5 NG/ML Troponin I LESS THAN 0.02 NG/ML B-Type Natriuretic Peptide 23 PG/ML Prothrombin Time 20.1 SEC Prothromb Time International Ratio 1.8 RATIO Activated Partial Thromboplast Time 33.6 SEC MDM Medical Record Reviewed: Yes Supervised Visit with TOBY: Yes Narrative Course I, Dr. Boone, have reviewed the advance practice practitioner's documentation and am in agreement, met with the patient face to face, made the diagnosis, and the medical decision making was done by me. The patient was initially evaluated by Simin. Please see their complete history and physical. *My assessment and Findings: The patient presents with pain in her chest with breathing that began on . The patient reports the pain is sharp in character. The patient was sent in by her primary care physician to have a chest x-ray to further evaluate. She denies any history of coronary artery disease. She reports that she has had a cardiac catheterization approximately a year ago that showed no evidence of coronary artery disease. She does have a history of DVT. The patient reports that she is on Coumadin. She reports that the last time that she had her INR checked it was subtherapeutic. During the course of the patients emergency department visit, the patients history, examination, and differential diagnosis were reviewed with the patient. The patient was placed on a cardiac rehabilitation program director with oximetry and frequent blood pressure monitoring. The patient had IV access obtained and blood work sent for analysis. The patient was initially provided Toradol 30 mg IV The patients laboratory studies were reviewed and remarkable for a white count of 9.1, hemoglobin 13.8, platelets 236 and normal differential, basic metabolic profile is remarkable for a creatinine of 1.21, GFR 53, glucose 157, cardiac enzymes within normal limits, BNP 23, INR 1.8. A CTA to rule out PE was ordered. Radiology studies were reviewed and remarkable for a chest x-ray that showed no acute cardiopulmonary disease. The patient's case was checked out to me at the end of Simin shows. CTA revealed a normal examination, minimal areas of airspace disease, atelectasis in the right lung base that it been stable since 2015. The patient is resting comfortably and feels better, is alert and in no distress. The patients results and examination findings were discussed with the patient. The repeat examination is unremarkable and benign. The history, exam, diagnostic testing, and current condition do not suggest any significant pathology to warrant further testing, continued ED treatment, admission, or surgical evaluation at this point. The vital signs have been stable. The patient does not have uncontrollable pain, intractable vomiting, or other significant symptoms. The patient's condition is stable and appropriate for discharge. The patient will pursue further outpatient evaluation with a primary care physician or other designated or consulting physician as indicated in the discharge instructions. The patient expressed understanding and was agreeable with this plan. Diagnosis Primary Impression: Pleuritic chest pain Referrals: Primary Care Physician 2 days Patient Instructions: Chest Pain (ED), General Instructions, Pleurisy (ED) Med/Other Pt SpecificInfo: No Change to Meds Disposition: 01 DISCHARGE HOME Condition: Stable Liz Boone MD Feb 24, 2017 23:01
[2017-02-24] MEDS ORDERED: IOHEXOL 350 MG/ML 10 ML VIAL (for RAD DIAG) IVCONTRAST ONE (23:24)
--- NOTE | 2017-02-24 23:37 | RADRPT ---
EXAM DATE/TIME: 02/24/2017 23:13 [facility] COMPARISON: CT PULMONARY ANGIOGRAM, September 13, 2014, 13:07. INDICATIONS : Shortness of breath x5 days. IV CONTRAST: 75 cc Omnipaque 350 (iohexol) IV RADIATION DOSE: 23.15 CTDIvol (mGy) MEDICAL HISTORY : Gastroesophageal reflux disease. Congestive heart failure. Deep venous thrombosis.Myocardial infarcti on. Diabetes. Hypertension. SURGICAL HISTORY : Hysterectomy. Gastric bypass. Cardiac catherization. ENCOUNTER: Initial ACUITY: 4 - 6 days PAIN SCALE: 5/10 LOCATION: chest TECHNIQUE: Volumetric scanning of the chest was performed using a pulmonary embolism protocol MIP images were re constructed. Using automated exposure control and adjustment of the mA and/or kV according to patien t size, radiation dose was kept as low as reasonably achievable to obtain optimal diagnostic quality images. DICOM format image data is available electronically for review and comparison. Follow-up recommendations for detected pulmonary nodules are based at a minimum on nodule size and pa tient risk factors according to Fleischner Society Guidelines. FINDINGS: PULMONARY ARTERIES: No filling defects are seen in the pulmonary arteries through the segmental level. LUNGS: There is no consolidation or pneumothorax . No concerning pulmonary nodule is visualized. PLEURAE: There is no pleural thickening or pleural effusion. MEDIASTINUM: There is good visualization of the great vessels of the middle mediastinum. No evidence of mediastin al or hilar adenopathy/mass. There is a stable soft tissue mass in the left paravertebral region supe riorly unchanged since 2014 MUSCULOSKELETAL: Within normal limits for patient age. MISCELLANEOUS: The visualized upper abdominal organs demonstrate no acute abnormality. CONCLUSION: Normal examination. Minimal areas of airspace disease possible atelectasis right lung base actually stable since September 2014. Destin Campuzano MD on February 24, 2017 at 23:34 Board Certified Radiologist. This report was verified electronically.
== END 2017-02-25 01:02 | disposition home or self-care (01) ==
LOC: NEPE 16:25
DX: R07.89 Other chest pain (principal); R00.1 Bradycardia, unspecified; E11.9 Type 2 diabetes mellitus without complications; E78.5 Hyperlipidemia, unspecified; I11.0 Hypertensive heart disease with heart failure; I50.9 Heart failure, unspecified; E78.00 Pure hypercholesterolemia, unspecified; Z86.718 Personal history of other venous thrombosis and embolism; Z79.01 Long term (current) use of anticoagulants
CPT/HCPCS: 71020; 71275; 80048; 82550; 82552; 83735; 83880; 84484; 85025; 85610; 85730; 93005; 99285; Q9967

== ENCOUNTER 2017-05-23 15:49 | Emergency (ER) | payer OTHER ==
[~2017-05-23] VITALS: Ht 160 cm; Wt 120.0 kg
[~2017-05-23 15:49] MED LIST changes: +ALLO100T PO; +OMEP10CA PO; +SPIR25TA PO; -WALKER/ADULT/FO1 MIS; -WHEEMIS3
[2017-05-23 15:54] VITALS: BP 162/81; PULSE 79; RESP 16; TEMP 98; O2SAT 100
[2017-05-23 15:58] VITALS: BP 190/95; PULSE 86; RESP 12; TEMP 98.2; O2SAT 86
[2017-05-23 17:43] VITALS: BP 153/70
--- NOTE | 2017-05-23 17:43 | PD ---
HPI Chief Complaint: Headache Time Seen by Provider: 17:28 Travel History International Travel<30 days: No Contact w/Intl Traveler<30days: No Traveled to known affect area: No History of Present Illness HPI 72-year-old female presents to the emergency department via EMS with complaint of left lateral neck pain that radiates to her head, causing a headache 1 week. Saw her primary care provider on Thursday and was told her headache was related to her elevated blood pressure. Patient denies nausea, vomiting, blurred vision. Denies chest pain, shortness of breath, dizziness, lightheadedness. Denies change in mentation, confusion, disorientation, slurred speech, focal deficits or weakness. Denies head injury. Denies history of headaches. Denies photophobia. Headache is absent in the morning and worse throughout the day. Headache is intermittent. Headache gradually onset. Headache 8/10. Believed with a quiet dark room. Worse after using her eyedrops for retinal detachment. Has not taken any medications or tried any treatments to alleviate her symptoms. Primary care provider is Dr. Pizano. Allergies to lisinopril and heparin. History of DVT and takes Coumadin. History of hypertension. History of diabetes and does not take any medications. History of PR. Has no other medical complaints. No other modifying factors or associated signs and symptoms. PFSH Past Medical History Hx Anticoagulant Therapy: Yes (COUMADIN) Arthritis: Yes Blood Disorders: No Heart Rhythm Problems: No Cancer: No Cardiac Catheterization: Yes Cardiovascular Problems: Yes (HTN; [place] ) High Cholesterol: Yes Chemotherapy: No Chest Pain: Yes Congestive Heart Failure: Yes Cerebrovascular Accident: No Diabetes: Yes Patient Takes Glucophage: No Diminished Hearing: No Deep Vein Thrombosis: Yes Endocrine: No Gastrointestinal Disorders: Yes GERD: Yes Genitourinary: No Hiatal Hernia: Yes Hypertension: Yes Immune Disorder: No Implanted Vascular Access Dvce: Yes Musculoskeletal: Yes (ARTHRITIS) Neurologic: No Psychiatric: No Reproductive: No Respiratory: No Immunizations Current: Yes Myocardial Infarction: Yes (11/2013) Thyroid Disease: No Menopausal: Yes Past Surgical History Abdominal Surgery: Yes (GASTRIC BYPASS 1995) Appendectomy: Yes Body Medical Devices: ZACKARY KNEE REPLACEMENT Cholecystectomy: Yes Coronary Artery Bypass Graft: No Eye Surgery: Yes (CATARACTS) Gynecologic Surgery: Yes (HYSTERECTOMY) Hysterectomy: Yes (TOTAL) Joint Replacement: Yes (BILAT KNEE REPLACEMENT) Other Surgery: Yes (GASTRIC BYPASS, CATARACTS) Family History Family Myocardial Infarction: Yes Social History Alcohol Use: No Tobacco Use: No Substance Use: No Allergies-Medications (Allergen,Severity, Reaction): Coded Allergies: lisinopril (Unverified Allergy, Severe, angioedema, 02/24/17) enoxaparin (Unverified Adverse Reaction, Severe, PLATELET PROBLEMS, ) heparin (porcine) (Unverified Adverse Reaction, Severe, PLATELET PROBLEMS , 02/24/17) Reported Meds & Prescriptions Reported Meds & Active Scripts Active Reported Omeprazole 10 Mg Cap 10 Mg PO DAILY Allopurinol 100 Mg Tab 100 Mg PO DAILY Spironolactone 25 Mg Tab 25 Mg PO BIDPC Amlodipine (Amlodipine Besylate) 10 Mg Tab 10 Mg PO DAILY Lipitor (Atorvastatin Calcium) 20 Mg Tab 20 Mg PO HS Warfarin 2.5 Mg Tab 2.5 Mg PO FRIMO Coumadin (Warfarin) 5 Mg Tab 5 Mg PO TUWETHSASU Review of Systems Except as stated in HPI: all other systems reviewed are Neg Physical Exam Narrative GENERAL: Well-nourished, well-developed elderly, black female patient, in no acute distress SKIN: Warm and dry. HEAD: Atraumatic. Normocephalic. No facial droop noted. Tongue midline. Finger to nose test normal. EYES: Pupils equal and round at 3 mm with brisk reaction. No scleral icterus. No injection or drainage. PERRLA. EOMI. ENT: Mucosa pink and moist. Airway patent. NECK: Trachea midline. No lymphadenopathy. CARDIOVASCULAR: Regular rate and rhythm. No murmur appreciated. RESPIRATORY: No accessory muscle use. Clear to auscultation. Breath sounds equal bilaterally. GASTROINTESTINAL: Abdomen soft, non-tender, nondistended. Hepatic and splenic margins not palpable. Bowel sounds are active 4 quadrants. MUSCULOSKELETAL: No obvious deformities. No clubbing. No cyanosis. No edema. NEUROLOGICAL: Awake and alert. Oriented 3. No obvious cranial nerve deficits. Motor grossly within normal limits. Normal speech. No ataxia. No mid -line drift. No upper or lower extremity drift. Moves all extremities. 5/5 strength to all extremities. PSYCHIATRIC: Appropriate mood and affect; insight and judgment normal. Data Data Last Documented VS Vital Signs Date Time Temp Pulse Resp B/P (MAP) Pulse Ox O2 Delivery O2 Flow Rate FiO2 05/23/17 17:43 153/70 (97) 05/23/17 17:21 67 18 100 Room Air 05/23/17 15:[address] Brain W/O Iv Contrast(Rout) (05/23/17 ) Acetaminophen (Tylenol) (05/23/17 17:45) Methocarbamol (Robaxin) (05/23/17 17:45) MDM Medical Decision Making Medical Screen Exam Complete: Yes Emergency Medical Condition: Yes Medical Record Reviewed: Yes Differential Diagnosis Cephalgia, hypertension, muscle spasm of the neck, neck strain, brain bleed, subarachnoid hemorrhage Narrative Course 72-year-old female with left lateral neck pain that radiates to her head causing a headache. Neuro exam is unremarkable. Blood pressure recheck is 153/ 70. I discussed the patient with my attending physician, Dr. Garner, and he agrees with my plan of care. CT head, Tylenol, Robaxin ordered. 1840: CT head with no acute findings. Discussed findings of the CT report with patient. Robaxin prescribed for home. Instructed patient to follow up with primary care provider. Patient verbalizes understanding and agreement with treatment plan. Patient is medically cleared and stable for discharge. Discussed reasons to return to the emergency department. Patient agrees with treatment plan. The patients vital signs are stable and the patient is stable for outpatient follow-up and treatment. Patient discharged home, stable and in no acute distress. Diagnosis Primary Impression: Neck muscle spasm Additional Impression: Headache Qualified Codes: R51 - Headache Referrals: Primary Care Physician Patient Instructions: Acute Headache (ED), General Instructions, Muscle Spasm ( ED) Additional Instructions: Tylenol as directed and as needed to reduce pain Robaxin as prescribed for muscle spasms Get adequate rest Ice and/or heating pad to affected area to reduce pain Avoid aggravating activity; increase activity as tolerated Tylenol as directed and as needed to reduce headache Get plenty of rest: do not over sleep rest and relax in a dark, quiet room as needed Place an ice pack on the back of her neck to reduce head pain as needed Keep a headache diary of what triggers her headaches and what treatment is most effective Avoid identifiable triggers Avoid smoking, alcohol and caffeine consumption Reduce stress Follow-up with primary care provider within 1-2 days Follow-up with neurology Return immediately to the emergency department with worsening symptoms Med/Other Pt SpecificInfo: Prescription(s) given, No Change to Meds Scripts Methocarbamol (Robaxin) 500 Mg Tab 500 MG PO QID Y for MUSCLE SPASM, #30 TAB 0 Refills Prov: Kym Cunningham 05/23/17 Disposition: 01 DISCHARGE HOME Condition: Stable Kym Cunningham May 23, 2017 17:43
[2017-05-23] MEDS ORDERED: METHOCARBAMOL 500 MG TAB PO ONE (17:45)
[2017-05-23] MEDS ORDERED: ACETAMINOPHEN 325 MG TAB PO ONE (17:45)
--- NOTE | 2017-05-23 18:25 | RADRPT ---
EXAM DATE/TIME: 05/23/2017 18:19 [place] COMPARISON: No previous studies available for comparison. INDICATIONS : Cephalgia. RADIATION DOSE: 56.35 CTDIvol (mGy) MEDICAL HISTORY : Cardiovascular disease. Deep venous thrombosis. Hypertension. SURGICAL HISTORY : Cholecystectomy. Appendectomy. ENCOUNTER: Initial ACUITY: 1 day PAIN SCALE: 5/10 LOCATION: cranial TECHNIQUE: Multiple contiguous axial images were obtained of the head. Using automated exposure control and adj ustment of the mA and/or kV according to patient size, radiation dose was kept as low as reasonably a chievable to obtain optimal diagnostic quality images. DICOM format image data is available electro nically for review and comparison. FINDINGS: CEREBRUM: The ventricles are normal for age. No evidence of midline shift, mass lesion, hemorrhage or acute in farction. No extra-axial fluid collections are seen. POSTERIOR FOSSA: The cerebellum and brainstem are intact. The 4th ventricle is midline. The cerebellopontine angle i s unremarkable. EXTRACRANIAL: The visualized portion of the orbits is intact. SKULL: The calvaria is intact. No evidence of skull fracture. CONCLUSION: Normal examination. Juan Pablo Garcia MD on May 23, 2017 at 18:22 Board Certified Radiologist. This report was verified electronically.
[2017-05-23] MEDS ORDERED: ROBA500T PO (18:39)
== END 2017-05-23 18:52 | disposition home or self-care (01) ==
LOC: NEPD 15:49
DX: M62.838 Other muscle spasm (principal); R51 Headache; I10 Essential (primary) hypertension; I25.2 Old myocardial infarction; E11.9 Type 2 diabetes mellitus without complications; Z88.8 Allergy status to other drugs, medicaments and biological substances; Z86.718 Personal history of other venous thrombosis and embolism
CPT/HCPCS: 70450; 99284